=== PATIENT | female | born 1965 | race Hispanic/Latino ===

== ENCOUNTER 2021-09-22 13:22 | Inpatient (IN) | payer OTHER ==
[~2021-09-22] VITALS: Ht 162.6 cm; Wt 61.6 kg
[2021-09-22] MEDS ORDERED: 0.9%NACL 1000ML 1,000 ML IV ONE (14:30)
[2021-09-22] MEDS ORDERED: ONDANSETRON 4MG INJ IVP ONE (14:30)
[2021-09-22 14:48] LABS: BASOPHILS % (AUTO) 0.7 % (0.0-5.0); EOSINOPHILS % (AUTO) 0.4 % (0.0-8.0); HEMATOCRIT 32.6 % (36-48); LYMPHOCYTES % (AUTO) 22.6 % (21.0-51.0); MEAN CORPUSCULAR HEMOGLOBIN 16.9 pg (27.0-33.0); MEAN CORPUSCULAR HGB CONC 25.5 g/dL (32.0-36.0); MEAN CORPUSCULAR VOLUME 66.5 fL (79-99); MONOCYTES % (AUTO) 6.6 % (3.0-13.0); NEUTROPHILS % (AUTO) 68.8 % (40.0-77.0); RED CELL DISTRIBUTION WIDTH 19.5 % (11.0-15.5); WHITE BLOOD COUNT (AUTO) 8.1 K/uL (4.8-10.8)
[2021-09-22 14:51] LABS: PLATELET COUNT (AUTO) 807 K/uL (130-400)
[2021-09-22 14:58] LABS: CREATININE 0.9 mg/dL (0.5-1.5); POTASSIUM 3.9 mmol/L (3.5-5.1)
[2021-09-22 15:03] LABS: ALBUMIN 3.4 g/dL (3.5-5.0); BILIRUBIN,TOTAL 1.3 mg/dL (0.2-1.0); TOTAL PROTEIN, SERUM 11.2 g/dL (6.0-8.3)
[2021-09-22 17:43] LABS: APPEARANCE,URINE Clear (CLEAR); BILIRUBIN,URINE Negative (NEGATIVE); COLOR,URINE Dark Yellow (YELLOW); GLUCOSE, URINE (UA) Negative (NEGATIVE); KETONES,URINE >=80 mg/dL (NEGATIVE); LEUKOCYTE ESTERASE ,URINE Small (NEGATIVE); NITRATE,URINE Negative (NEGATIVE); OCCULT BLOOD,URINE Negative (NEGATIVE); PH,URINE 5.5 (5.0-8.0); PROTEIN,URINE POS 1+ mg/dL (NEGATIVE)
[2021-09-22 18:18] LABS: BACTERIA,URINE Few /HPF (None Seen); MUCUS,URINE Moderate LPF (None Seen); RBC,URINE 0-1 /HPF (0-1); SQUAMOUS EPITHELIAL CELL,UR Few /HPF (0-2)
[2021-09-22] MEDS ORDERED: ONDANSETRON 4MG INJ IV PRN (20:00)
[2021-09-22] MEDS ORDERED: HYDROCODONE/ACETAMINOPHEN 5/325 MG TAB PO PRN (20:00)
[2021-09-22] MEDS ORDERED: MAG/ALUM/SIMETH 30 ML UDCUP PO PRN (20:00)
[2021-09-22] MEDS ORDERED: MORPHINE 4 MG SYG IV PRN (20:00)
[2021-09-22] MEDS ORDERED: ACETAMINOPHEN 325 MG TAB PO PRN ×2 (20:00)
[2021-09-22] MEDS ORDERED: LACTULOSE 20 GM/30 ML UDCUP PO PRN (20:00)
[2021-09-22] MEDS: INSULIN HUMULIN R 100 UNIT/ML 3ML SQ SCH (20:49)
[2021-09-22] MEDS: FAMOTIDINE 20MG TAB PO SCH (20:52)
[2021-09-23] MEDS: CEFTRIAXONE 1G VIAL IVP SCH (03:48)
[2021-09-23] MEDS: INSULIN HUMULIN R 100 UNIT/ML 3ML SQ SCH ×3 (07:30→20:58)
[2021-09-23] MEDS: FAMOTIDINE 20MG TAB PO SCH ×2 (09:00→20:58)
[2021-09-23 10:39] VITALS: BP 121/69
[2021-09-23 16:08] VITALS: BP 127/72
[2021-09-23 20:00] VITALS: BP 129/74
[2021-09-24] VITALS (13 sets, daily range): BP systolic 107–123; BP diastolic 66–78
[2021-09-24] MEDS: CEFTRIAXONE 1G VIAL IVP SCH (02:39)
[2021-09-24] MEDS: INSULIN HUMULIN R 100 UNIT/ML 3ML SQ SCH ×4 (06:59→20:54)
[2021-09-24 08:19] LABS: HEMATOCRIT 26.9 % (36-48); MEAN CORPUSCULAR HEMOGLOBIN 16.9 pg (27.0-33.0); MEAN CORPUSCULAR HGB CONC 25.3 g/dL (32.0-36.0); MEAN CORPUSCULAR VOLUME 66.9 fL (79-99); RED BLOOD CELL COUNT(AUTO) 4.02 MIL/uL (4.00-5.50); RED CELL DISTRIBUTION WIDTH 19.5 % (11.0-15.5); WHITE BLOOD COUNT (AUTO) 7.6 K/uL (4.8-10.8)
[2021-09-24 08:27] LABS: CREATININE 0.7 mg/dL (0.5-1.5); POTASSIUM 3.4 mmol/L (3.5-5.1)
[2021-09-24] MEDS: FAMOTIDINE 20MG TAB PO SCH ×2 (08:41→20:23)
[2021-09-24 09:47] LABS: HEMATOCRIT 27.5 % (36-48)
[2021-09-24] MEDS ORDERED: ACET1TAB25 PO (11:45)
[2021-09-24] MEDS ORDERED: 0.9% NACL 250ML 250 ML ONE (12:31)
[2021-09-24] MEDS ORDERED: CEPH500B PO (14:06)
[2021-09-25] VITALS: BP_SYST 122; BP_SYST 123; BP_DIAS 73; BP_DIAS 79
[2021-09-25] MEDS: CEFTRIAXONE 1G VIAL IVP SCH (02:31)
[2021-09-25 04:00] VITALS: BP 114/78
[2021-09-25] MEDS: INSULIN HUMULIN R 100 UNIT/ML 3ML SQ SCH (06:34)
[2021-09-25 08:00] VITALS: BP 110/65
[2021-09-25] MEDS: FAMOTIDINE 20MG TAB PO SCH (08:02)
[2021-09-25 09:05] LABS: HEMATOCRIT 32.1 % (36-48)
== END 2021-09-25 10:00 | disposition home or self-care (01) | DRG 598 ==
LOC: EDH 13:22 → EDHIP 13:23 → 3BH 09-23 10:49
PROVIDERS: ADMIT Internal Medicine; ATTEND Internal Medicine
PROC: 0HBT3ZX Excision of Right Breast, Percutaneous Approach, Diagnostic (ICD-10-PCS; principal; 2021-09-24)
PROC: 30233N1 Transfusion of Nonautologous Red Blood Cells into Peripheral Vein, Percutaneous Approach (ICD-10-PCS; 2021-09-24)
DX: C50.911 Malignant neoplasm of unspecified site of right female breast (principal); J90 Pleural effusion, not elsewhere classified; J98.11 Atelectasis; N39.0 Urinary tract infection, site not specified; D64.9 Anemia, unspecified; D75.838 Other thrombocytosis; D75.839 Thrombocytosis, unspecified; E11.65 Type 2 diabetes mellitus with hyperglycemia; Z20.822 Contact with and (suspected) exposure to COVID-19; Z91.19 Patient's noncompliance with other medical treatment and regimen; Z79.84 Long term (current) use of oral hypoglycemic drugs; Z83.3 Family history of diabetes mellitus
CPT/HCPCS: 19083; 36415; 36430; 71045; 71260; 74177; 80048; 80053; 81001; 82378; 82550; 82948; 83880; 84484; 85014; 85018; 85025; 85027; 86850; 86900; 86901; 86923; 87088; 87635; 93005; C9803; G0378; J0696; J2405; J7050; P9016